=== PATIENT | female | born 1980 | race Caucasian/White ===

== ENCOUNTER 2020-03-20 07:50 | Outpatient (CLI) | payer OTHER, SELFPAY ==
--- NOTE | ~2020-03-20 | MM_ITS ---
EXAMINATION: MM screening [facility] [place] HISTORY: Screening mammogram TECHNIQUE: Craniocaudal and mediolateral oblique 3-D tomosynthesis images were obtained and synthetic 2-D images were generated. CAD analysis was submitted and interpreted. COMPARISON: 02/22/2019, 02/23/2018, 01/13/2017 BREAST PARENCHYMAL COMPOSITION: The breasts are heterogeneously dense, which may obscure small masses . FINDINGS: Scattered punctate right breast calcifications are stable. Multiple obscured cysts are note d in the left breast. There is no evidence of suspicious mass, calcification, or architectural distor tion to suggest malignancy in either breast. There has been no suspicious interval change. IMPRESSION: 1. No mammographic evidence of malignancy. 2. Recommend routine screening mammography in one year. BI-RADS Category 2: Benign finding(s). Reviewed, dictated and finalized at location A. DOWN NURSE
== END 2020-03-20 07:51 | disposition home or self-care (01) ==
LOC: ANHIMG 07:53
PROVIDERS: PCP Family Medicine; Visit Provider Family Medicine
DX: Z12.31 Encounter for screening mammogram for malignant neoplasm of breast (principal)
CPT/HCPCS: 77063; 77067

== ENCOUNTER 2020-09-04 09:13 | Outpatient (CLI) | payer OTHER, SELFPAY | END 2020-09-04 09:14 | disposition home or self-care (01) | PROVIDERS: PCP Family Medicine; Visit Provider Urology | DX: N39.3 Stress incontinence (female) (male) (principal); Z01.818 Encounter for other preprocedural examination | CPT/HCPCS: 87086; 87088 ==

== ENCOUNTER 2020-09-15 00:10 | Day surgery (SDC) | payer OTHER, SELFPAY ==
[2020-09-04 08:47] VITALS: BMI 24.1
--- NOTE | 2020-09-11 19:00 | PM.IMHP ---
H&P: HPI History of Present Illness Date/Time: 09/11/20 19:00 40 yo with DENISE Chief Complaint: DENISE Review of Systems Review of Systems: All systems reviewed & are unremarkable except as noted in HPI and below PMFSH Family History Family History Father Hypertension Grandparent Family history of pancreatic cancer Other Cerebrovascular accident Family history of coronary artery disease Family history of malignant neoplasm of male breast Social History Social History Smoking status: Never smoker Second hand tobacco smoke exposure: No Alcohol intake: current Drinks per week: 2 Spiritual care concerns: No Meds Home Medications and Allergies Home Medications Medication Instructions Recorded Confirmed Type omeprazole 20 mg capsule,delayed 20 mg PO DAILY #90 cap 06/28/19 09/04/20 Rx release escitalopram oxalate 5 mg tablet See Rx Instructions .ROUTE 08/30/20 09/04/20 Rx .COMPLEX #90 tablet cetirizine [Zyrtec] 10 mg PO DAILY 09/04/20 09/04/20 History flaxseed oil 2,000 mg PO DAILY 09/04/20 09/04/20 History fluticasone propionate [Flonase 2 spray INTRANASAL DAILY 09/04/20 09/04/20 History Allergy Relief] multivitamin-iron (hematinic) 1 tablet PO DAILY 09/04/20 09/04/20 History [Complete Vitamin] rizatriptan [Maxalt] 10 mg PO PRN PRN 09/04/20 09/04/20 History Allergies Allergy/AdvReac Type Severity Reaction Status Date / Time ciprofloxacin Allergy Unknown RASH,SOB Verified 09/04/20 08:36 thimerosal Allergy Unknown Itching IN Verified 09/04/20 08:41 THE EYES Exam Const: General: cooperative and healthy appearing HENMT: Head: normal to inspection Resp: Effort & Inspection: normal respiratory effort and able to speak in complete sentences Psych: Appearance: grossly normal Assessment and Plan Assessment and plan (1) DENISE (stress urinary incontinence, female): Code(s): N39.3 - Stress incontinence (female) (male) Status: Acute Assessment and Plan: urethral sling
[2020-09-15 06:34] VITALS: BP 116/70; PULSE 65; RESP 16; TEMP 36.3; O2SAT 100
[2020-09-15] MEDS: LACTATED RINGERS 1,000 ML 30 ML IV CONT (07:00)
--- NOTE | 2020-09-15 07:19 | WPDHPUPDATE1 ---
History and Physical Update Update Date/Time: 09/15/20 07:19 History and Physical has been reviewed, including an updated exam of the patient. There are NO changes in the patient's condition. Risks, benefits, and alternatives have been discussed and questions answered. Patient agrees to proceed with procedure.
--- NOTE | 2020-09-15 07:26 | WPDANESEPPF ---
Anes - Initial Pre Proc Eval Procedure: Operation Date: 09/15/20 08:15 Proposed Procedures p Urethral Sling - Collin Richter MD Date/Time: 09/15/20 07:26 Surgeon: Collin Richter MD Pre Op Diagnosis: stress incontinence Patient Data Age: 40 Gender: F Height: 1.65 m Weight: 65.4 kg Last Vital Signs Temp 36.3 C L 09/15/20 06:34 Pulse 65 09/15/20 06:34 Resp 16 09/15/20 06:34 BP 116/70 09/15/20 06:34 Pulse Ox 100 09/15/20 06:34 Allergies Allergy/AdvReac Type Severity Reaction Status Date / Time ciprofloxacin Allergy Severe RASH,SOB Verified 09/15/20 06:52 thimerosal AdvReac Intermediate Itching IN Verified 09/15/20 06:52 THE EYES Home Medications Medication Instructions Recorded Confirmed Type omeprazole 20 mg capsule,delayed 20 mg PO DAILY #90 cap 06/28/19 09/15/20 Rx release cetirizine [Zyrtec] 10 mg PO DAILY 09/04/20 09/15/20 History flaxseed oil 2,000 mg PO DAILY 09/04/20 09/15/20 History fluticasone propionate [Flonase 2 spray INTRANASAL DAILY 09/04/20 09/15/20 History Allergy Relief] multivitamin-iron (hematinic) 1 tablet PO DAILY 09/04/20 09/15/20 History [Complete Vitamin] rizatriptan [Maxalt] 10 mg PO PRN PRN 09/04/20 09/15/20 History escitalopram oxalate 5 mg PO DAILY 09/15/20 09/15/20 History Patient hx anesthesia problems: none Family hx anesthesia problems: none PMFSH Family History Family History Father Hypertension Grandparent Family history of pancreatic cancer Other Cerebrovascular accident Family history of coronary artery disease Family history of malignant neoplasm of male breast Social History Social History Smoking status: Never smoker Second hand tobacco smoke exposure: No Alcohol intake: current Drinks per week: 2 Living arrangements: with family Spiritual care concerns: No Anes - Eval Final PreProcedure Day of Procedure 09/15/20 07:26 Patient weight: normal Heart: regular rate and rhythm Lungs: clear to auscultation Airway: Mallampati scale class 1 Neurological: alert and oriented Last oral intake: >/= 8 hours ASA classification: I Emergent: no Anesthetic plan: proceed Anesthesia type and monitoring: general GIVS and standard monitoring Informed Consent: The patient's anesthetic plan and its attendant risks and benefits were discussed with the patient/family/POA. Questions were solicited and answers provided to the satisfaction of the patient/family/POA.
[2020-09-15] MEDS: ceFAZolin 2 GM/D5W 50 ML 2 GM/50 ML BAG IVPB (08:18)
[2020-09-15] MEDS: BUPIVACAINE/EPINEPHRINE 0.25% 10 ML VIAL INFILTRATE (08:38)
--- NOTE | 2020-09-15 08:51 | W.PM.PROC2 ---
Procedure Note - Detailed Date of Procedure 09/15/20 Pre-op Diagnosis stress incontinence Post-op Diagnosis same Procedure Performed mid urethral sling cystoscopy Surgeon Collin Richter MD Indications This is a female with confirm stress urinary incontinence. She desires surgical correction. She understands the risks of bleeding, infection, injury to the urinary tract, vaginal mesh extrusion, urinary tract mesh erosion, obstructive voiding requiring a secondary procedure, hip and leg pain, dyspareunia, inability to improve overactive bladder symptoms. She agrees to proceed. Description of Procedure She was correctly identified. Informed consent obtained. She was brought the operating room. She was given appropriate anesthesia. She was given appropriate perioperative antibiotics. A time-out performed. I marked out the site of the inner thigh incisions. I anesthetized the skin and made those incisions. I anesthetized the anterior vaginal wall over the mid urethra. I made a 1 cm incision. I dissected out laterally taking great care not to injure the refilled vaginal wall. I passed the helical trocars. First on the left. Then on the right. I did this from the thigh incision towards the vaginal incision. The sling was connected to the trocars and brought out through the thigh incision. I tensioned the sling appropriately. I cut and the plastic sheaths. I then closed the incision with 2 0 Vicryl. On cystoscopy there is no tumors or surgical artifact. There was no surgical artifact in the urethra. I cut the excess sling material. Close incisions with glue. She was awakened and transferred to the PACU in stable condition. Implants Urethral sling Drains No Packing No Pathology none sent Complications No immediate complications Condition stable Disposition PACU
[2020-09-15 08:53] VITALS: BP 91/51; PULSE 57; RESP 16; O2SAT 97
[2020-09-15 09:20] VITALS: BP 95/61; PULSE 51; RESP 18; O2SAT 98
[2020-09-15 09:50] VITALS: BP 101/61; PULSE 54; RESP 18
== END 2020-09-15 10:06 | disposition home or self-care (01) ==
PROVIDERS: PCP Family Medicine; Visit Provider Urology
PROC: (CPT 57288; principal; 2020-09-15 08:15)
DX: N39.3 Stress incontinence (female) (male) (principal)
CPT/HCPCS: 57288; A9270; C1771; J0690; J1100; J1885; J2250; J2405; J2704; J3010; J7030; J7120